=== PATIENT | female | born 1985 | race Caucasian/White ===

== ENCOUNTER 2022-06-27 05:04 | Inpatient (IN) | payer OTHER, SELFPAY ==
[2022-06-27] VITALS (130 sets, daily range): BP systolic 97–169; BP diastolic 56–100; PULSE 69–149; RESP 18–20; TEMP 36.3–36.9; O2SAT 85–100; BMI 32.2
--- NOTE | 2022-06-27 05:05 | HPE_ITS ---
Date of service: 06/27/22 Time of Service: 05:06 Assessment and Plan Assessment and plan (1) Uterine contractions: Status: Acute (2) : Status: Acute (3) Positive GBS test: Status: Acute (4) AMA (advanced maternal age) multigravida 35+: Status: Acute Assessment and plan: 37 yo G1 presents at 39w1d in active labor with SVE 9/100/0, FHT cat I for the most part with some periods of minimal variability but no decelerations. Has had some scant bloody show, will continue to monitor. - PCN dose 1 to be given now, unlikely will be able to receive full prophylaxis before delivery. - She is managing discomfort well, but does request an epidural. - Anticipate OB-HPI Labor/Delivery History of Present Illness Reason for Visit: labor Chief Complaint: Uterine Contractions. EHIDY Calculator Estimated Delivery Date Method Current WG Current Estimate 07/03/22 LMP (Certain) 39w 1d Other Estimates 07/01/22 Ultrasound #1 39w 3d Comments: 37 yo called this morning with c/o contractions since 2:30am. Had been seen in the office on 06/25 with c/o cramping and was 3cm dilated. Had one episode of vaginal bleeding about 1 tbs of blood when she used the bathroom. No loss of fluid. Not sure when she last felt baby move. history notable for: - AMA, cffDNA wnl, female fetus.CF/SMA neg. Level II US at [facility] [place] w[place], anterior placenta. - GBS positive, history of PCN allergy causing rash, allergy testing during negative, cleared for penicillin prophylaxis. - Blood type A pos, antibody neg, RI, HIV/Hep C neg. History of Present Expected Delivery Route/Plan vaginal PFSH All Active Problems (Updated 06/27/22 @ 05:36 by Cyn Longoria) Uterine contractions (Acute) Positive GBS test (Acute) AMA (advanced maternal age) multigravida 35+ (Acute) (Acute) Social History Smoking risk assessment performed?: No History History 1 Para 0 Hx # Term Pregnancies Multiple births Hx # Pregnancies Ectopic pregnancies AB induced Hx Number of Living Children AB spontaneous Exam Physical Exam Vital Signs Reviewed: Yes Constitutional Constitutional: mild distress Detailed Labor and Delivery Exam Dilation: 9 Effacement (%): 100 station: 0 Marquez Score: Cervical Points Exam 0 1 2 3 Dilation Closed 1-2cm 3-4 cm 5-6cm Effacement 0-30% 40-50% 60-70% 80% Consistency Firm Medium Soft Station -3 -2 -1,0 +1,+2 Position Posterior Mid Anterior Amniotic Membrane Status: Intact Contraction Frequency(min): 2 Contraction Duration(sec): 60 Contraction Intensity: Moderate/Strong Fetus A Heart Rate Baseline: 130 Monitor Accelerations: 15 X 15 (with scalp stim) Monitor Decelerations: None Variability: Moderate (6-25 BPM) Presentation: Vertex Categories: Category I Respiratory Exam Respiratory Exam: Normal Psychiatric Exam Psychiatric Exam: Normal Results Results Group Beta Strep: Positive Blood Type: A+ Rubella Status: Immune Varicella Immunity: Not Tested Risk Assessment Risk for Shoulder Dystocia Increased Risk?: No Risk for Post- Hemorrhage At Risk?: No Risks Reviewed Risks Reviewed Upon Admission: Yes
[2022-06-27] MEDS: Penicillin G POT. 5,000,000 UNITS in Normal Saline 100 ML 200 UNITS IVPB (05:50)
[2022-06-27 05:53] LABS: HCT 32.3 % (36.0-46.0); HGB 10.4 g/dL (11.2-15.7); MCH 27.2 pg (27.0-33.0); MCHC 32.2 % (32.0-36.0); MCV 84 fL (80-95); MPV 9.8 fL (8.0-11.0); Platelet Count 301 10^3/uL (130-400); RBC 3.83 10^6/uL (3.93-5.22); RDW 13.4 % (11.7-14.6); RDW-SD 41.2 fL; WBC 15.71 10^3/uL (4.4-10.8)
--- NOTE | 2022-06-27 06:12 | W.ANESPRE ---
General Info Date of Service Date Performed: 06/27/22 Height: 5 ft 7 in Weight: 93.44 kg Body Mass Index (BMI): 32.2 Meds Allergies and Home Medications Current Visit Medications: Current Medications Generic Name Dose Route Start Last Admin Trade Name Freq PRN Reason Stop Dose Admin Sodium Chloride 500 mls @ 0 mls/hr 06/27/22 05:03 Saline 500ml Bag IV PRN PRN As Directed Penicillin G Potassium 3,000, 50 mls @ 100 mls/hr 06/27/22 09:00 000 units/ Sodium Chloride IVPB Q4H PRIMITIVO IV Miscellaneous Supplies 1 each 06/27/22 05:15 Iv Access IV DIRECTED PRIMITIVO IV Miscellaneous Supplies 1 each 06/27/22 05:15 Iv Access IV DIRECTED PRIMITIVO Sodium Chloride 0 ml 06/27/22 05:03 Normal Saline Flush 10 Ml Syr IVP PRN PRN PFSH Active Problems Active Problems: Problem Status Onset Code Uterine contractions O47.9 Positive GBS test B95.1 AMA (advanced maternal age) multigravida 35+ O09.529 Z34.90 Prental History History 1 Para 0 Hx # Term Pregnancies Multiple births Hx # Pregnancies Ectopic pregnancies AB induced Hx Number of Living Children AB spontaneous Vital Signs and Lab Results Vital Signs Most Recent Vital Signs in EMR: Most Recent Vital Signs Temp Pulse Resp BP 36.3 C L 78 18 129/86 06/27/22 05:01 06/27/22 05:20 06/27/22 05:01 06/27/22 05:20 Lab Results Result Diagrams: 06/27/22 05:37 Blood Type / Crossmatch: Patient ABO/Rh Pending 06/27/22 Complete Blood Count: White Blood Count 15.71 10^3/uL (4.4-10.8) H 06/27/22 05:37 Red Blood Count 3.83 10^6/uL (3.93-5.22) L 06/27/22 05:37 Hemoglobin 10.4 g/dL (11.2-15.7) L 06/27/22 05:37 Hematocrit 32.3 % (36.0-46.0) L 06/27/22 05:37 Platelet Count 301 10^3/uL (130-400) 06/27/22 05:37 Complete Metabolic Panel: No Data to Display Liver Function Panel: No Data to Display Coagulation Panel: No Data to Display Cardiac Panel: No Data to Display Arterial Blood Gas: No Data to Display Venous Blood Gas: No Data to Display Pancreas Panel: No Data to Display Thyroid Panel: No Data to Display Infectious Disease: Coronavirus (COVID-19)(PCR) Pending 06/27/22 05:43 Coronavirus 2019 Source Pending 06/27/22 05:43 Blood Cultures: No Data to Display Toxicology Panel: No Data to Display Panel: No Data to Display Anesthesia Assessment and Plan Anesthesia History Personal History: No History of Anesthesia Complications Family History: No Family History of Anesthesia Complications Exercise Tolerance Exercise Tolerance: Metabolic Equivalents>4 Cardiac & Pulmonary Exam Cardiac Exam: Normal S1/S2 Heart Sounds Pulmonary Exam: Clear Bilateral Breath Sounds Implantable Cardiac Device Does patient have a Pacemaker or an ICD?: No Airway Exam Known Difficult Airway: No Mallampati Class: 1 Mouth Opening: Normal (> 3cm) Thyromental Distance: Greater than 3 cm Neck Range of Motion: Full ROM Neck Circumference: Normal Teeth Condition: Normal Dentition ASA Classification ASA Score: ASA 2 Emergency Case?: No NPO Status NPO Status: Full Stomach Status Status: Confirmed Anesthesia Plan Resuscitation Status: Full Code Anesthesia Technique: Spinal Anesthesia Airway Planned: Natural Airway Monitors Used: Standard Monitors
--- NOTE | 2022-06-27 06:43 | W.ANESPRE ---
General Info Height: 5 ft 7 in Weight: 93.44 kg Body Mass Index (BMI): 32.2 Meds Allergies and Home Medications Current Visit Medications: Current Medications Generic Name Dose Route Start Last Admin Trade Name Freq PRN Reason Stop Dose Admin Sodium Chloride 500 mls @ 0 mls/hr 06/27/22 05:03 Saline 500ml Bag IV PRN PRN As Directed Penicillin G Potassium 3,000, 50 mls @ 100 mls/hr 06/27/22 09:00 000 units/ Sodium Chloride IVPB Q4H PRIMITIVO IV Miscellaneous Supplies 1 each 06/27/22 05:15 Iv Access IV DIRECTED PRIMITIVO IV Miscellaneous Supplies 1 each 06/27/22 05:15 Iv Access IV DIRECTED PRIMITIVO Sodium Chloride 0 ml 06/27/22 05:03 Normal Saline Flush 10 Ml Syr IVP PRN PRN PFSH Active Problems Active Problems: Problem Status Onset Code Uterine contractions O47.9 Positive GBS test B95.1 AMA (advanced maternal age) multigravida 35+ O09.529 Z34.90 Prental History History 1 Para 0 Hx # Term Pregnancies Multiple births Hx # Pregnancies Ectopic pregnancies AB induced Hx Number of Living Children AB spontaneous Vital Signs and Lab Results Vital Signs Most Recent Vital Signs in EMR: Most Recent Vital Signs Temp Pulse Resp BP Pulse Ox 36.3 C L 82 20 123/70 98 06/27/22 05:01 06/27/22 06:41 06/27/22 06:28 06/27/22 06:41 06/27/22 06:40 Lab Results Result Diagrams: 06/27/22 05:37 Blood Type / Crossmatch: Patient ABO/Rh A Positive 06/27/22 Antibody Screen NEGATIVE 06/27/22 Complete Blood Count: White Blood Count 15.71 10^3/uL (4.4-10.8) H 06/27/22 05:37 Red Blood Count 3.83 10^6/uL (3.93-5.22) L 06/27/22 05:37 Hemoglobin 10.4 g/dL (11.2-15.7) L 06/27/22 05:37 Hematocrit 32.3 % (36.0-46.0) L 06/27/22 05:37 Platelet Count 301 10^3/uL (130-400) 06/27/22 05:37 Complete Metabolic Panel: No Data to Display Liver Function Panel: No Data to Display Coagulation Panel: No Data to Display Cardiac Panel: No Data to Display Arterial Blood Gas: No Data to Display Venous Blood Gas: No Data to Display Pancreas Panel: No Data to Display Thyroid Panel: No Data to Display Infectious Disease: Coronavirus (COVID-19)(PCR) Pending 06/27/22 05:43 Coronavirus 2019 Source Pending 06/27/22 05:43 Blood Cultures: No Data to Display Toxicology Panel: No Data to Display Panel: No Data to Display Anesthesia Assessment and Plan Anesthesia History Personal History: No History of Anesthesia Complications Family History: No Family History of Anesthesia Complications Exercise Tolerance Exercise Tolerance: Metabolic Equivalents>4 Cardiac & Pulmonary Exam Cardiac Exam: Normal S1/S2 Heart Sounds Pulmonary Exam: Clear Bilateral Breath Sounds Implantable Cardiac Device Does patient have a Pacemaker or an ICD?: No Airway Exam Known Difficult Airway: No Mallampati Class: 1 Mouth Opening: Normal (> 3cm) Thyromental Distance: Greater than 3 cm Neck Range of Motion: Full ROM Neck Circumference: Normal Teeth Condition: Normal Dentition
[2022-06-27] MEDS: Bupivacaine 0.25% Pres-Free 10 ML VIAL (06:45)
[2022-06-27] MEDS: fentaNYL 100 MCG/2 ML VIAL (06:45)
--- NOTE | 2022-06-27 06:47 | W.ANESPROC ---
Intrathecal Analgesia Date Performed: 06/27/22 Procedure Time: 06:48 Requesting Provider: Murray Valenzuela Procedure Location: Obstetrics Reason Performed: Labor Intrathecal Analgesia Standard Monitors Applied: ECG, Blood Pressure and SpO2 Patient Position: Sitting Timeout Performed: Yes Sedation Given (Indicate Dose Given): No Sedation given Patient Mental Status: Awake Sterility: Hand Hygiene, Surgical Cap, Surgical Mask and Sterile Gloves Placement Site: L2-L3 Interspace Spinal Needle Type: Yordy 25 Gauge Needle Length: 3.5 Inch Spinal Procedure: Site Prepped and Sterile Drape Placed Paresthesia: None Spinal Local Anesthetic (Indicate Dose Given): Bupivacaine 0.25% PF (ml) Dose:: 1cc Additives (Indicate Dose Given): Fentanyl PF Dose:: 15mcg and Duramorph PF Dose:: 200mcg Ultrasound: Not Used Number of Attempts (See previous attempts in note section): 2 Procedure Tolerated: No Complications and Patient tolerated well Procedure Outcome: Successful Performed By: Merrill Rodrigues
--- NOTE | 2022-06-27 07:16 | W.PM.OBNL1 ---
Date of service: 06/27/22 Time of Service: 07:16 Pelvic Exam Dilation: 10 Effacement (%): 100 station: +1 Cervix Position: anterior Consistency: soft Vaginal Exam Presentation: Vertex Contractions Monitor Mode: External Contraction Frequency(min): 2 Contraction Duration(sec): 60 Intensity: Moderate/Strong Fetus A Monitor: External (US) Heart Rate Baseline: 145 Presentation: Vertex Variability: Moderate (6-25 BPM) Categories: Category I FHR Rhythm: Regular Characteristics: Normal Accelerations: 15 X 15 Decelerations: None Amniotic Membrane Status: Intact Assessment Note: Intermittent minimal variability but overall category 1 strip. Assessment and Plan Assessment and plan (1) : Status: Acute Assessment and plan: Mima now has an intrathecal in place and feels significant relief. She is complete, baby at +1 station, but not yet feeling the urge to push so will let her labor down and rest. Anticipate delivery soon. Category 1 strip. 1 dose of penicillin in for GBS+ status. Qualifiers: Weeks of gestation: 39 weeks Qualified Code(s): Z3A.39 - 39 weeks gestation of (2) Positive GBS test: Status: Acute Objective Abnormal lab results 06/27/22 Range/Units 05:37 WBC 15.71 H (4.4-10.8) 10^3/uL RBC 3.83 L (3.93-5.22) 10^6/uL Hgb 10.4 L (11.2-15.7) g/dL Hct 32.3 L (36.0-46.0) % Temp Pulse Resp BP Pulse Ox 36.3 C L 79 20 114/77 100 06/27/22 05:01 06/27/22 07:15 06/27/22 06:28 06/27/22 07:14 06/27/22 07:15 Laboratory Results WBC 15.71 10^3/uL (4.4-10.8) H 06/27/22 05:37 RBC 3.83 10^6/uL (3.93-5.22) L 06/27/22 05:37 Hgb 10.4 g/dL (11.2-15.7) L 06/27/22 05:37 Hct 32.3 % (36.0-46.0) L 06/27/22 05:37 MCV 84 fL (80-95) 06/27/22 05:37 MCH 27.2 pg (27.0-33.0) 06/27/22 05:37 MCHC 32.2 % (32.0-36.0) 06/27/22 05:37 RDW 13.4 % (11.7-14.6) 06/27/22 05:37 Plt Count 301 10^3/uL (130-400) 06/27/22 05:37 MPV 9.8 fL (8.0-11.0) 06/27/22 05:37 Patient ABO/Rh A Positive 06/27/22 05:37 Antibody Screen NEGATIVE 06/27/22 05:37 Vital Signs Reviewed: Yes Subjective Patient Reports: No new Complaints Interval history since last seen: Spinal now in place, pain very well controlled. Interventions Pain Management Interventions: Intrathecial. Results Hemoglobin/Hematocrit: Hgb 10.4 g/dL (11.2-15.7) L 06/27/22 05:37 Hct 32.3 % (36.0-46.0) L 06/27/22 05:37 Abnormal Lab Findings: Abnormal Labs 06/27/22 05:37 WBC 15.71 H RBC 3.83 L Hgb 10.4 L Hct 32.3 L
[2022-06-27 07:28] LABS: Source Nasal/Nares
[2022-06-27 08:04] LABS: COVID-19 PCR Negative (Negative)
[2022-06-27] MEDS: Ondansetron 4 MG/2 ML VIAL IVP ×3 (09:45→17:20)
--- NOTE | 2022-06-27 10:09 | W.OBDELIVERY ---
Date of service: 06/27/22 Time of Service: 08:03 OB Labor/ Delivery Information Baby A Delivery Delivery Method: Spontaneaous Presentation: Vertex Cephalic Position: Vertex Vertex Position: Left Occipital Anterior Breech Position: N/A Cord Description-Baby A: 3 Vessels, Nuchal Cord and Reduced Amniotic Fluid: Clear Estimated Blood Loss: 50 Delivery Outcome: Liveborn Infant Complications: none Infant Transferred: Remains with Mother Providers Doctor: Murray Valenzuela Numerical Control Drill Press Operator: Murray Valenzuela Nurse: Sherin Willingham Labor/Delivery Information Number of Babies in Womb: 1 Steroids Given: None Reason Steroids Not Administered: N/A Group Beta Strep: Positive Antibiotics Administered: Yes Number of Doses of Antibiotics: 1 Rubella Status: Immune Blood Type: A+ Varicella Immunity: Not Tested Born En Route: No Maternal Complications: None Shoulder Dystocia: No Stages of Labor Onset of Labor Date: 06/27/22 Onset of Labor Time: 02:30 Complete Dilatation Date: 06/27/22 Complete Dilatation Time: 07:10 Labor - Stage 1 Duration: 4 hours and 40 minutes Infant Delivery Date-Baby A: 06/27/22 Delivery Time-Baby A: 08:03 Labor Stage 2 Duration: 53 minutes Placenta Delivery Date-Baby A: 06/27/22 Placenta Delivery Time-Baby A: 08:07 Labor-Stage 3 Duration: 4 minutes Total Length of Labor-Baby A: 5 hours and 33 minutes Placenta Cultured: No Placenta Status: Delivered Baby A Gender: Female Gestational Status: Term (39-41.6 wks) Gestational Age in Weeks/Days: 39 Weeks and 1 Days Score-1 Minute Interval(Baby A) Heart Rate-1 minute: 100 BPM or Greater Respiratory Effort- 1 minute: Slow Respiration/Weak Cry Muscle Tone-1 minute: Active Movement Reflex Response-1 minute: Prompt Response Color-1 minute: Bluish Hands or Feet Total Score-1 minute: 8 Score-5 Minute Interval(Baby A) Heart Rate- 5 minute: 100 BPM or Greater Respiratory Effort-5 minute: Spontaneous/Strong Cry Muscle Tone-5 minute: Active Movement Reflex Response-5 minute: Prompt Response Color-5 minute: Bluish Hands or Feet Total Score- 5 minute: 9 Note: Mima reached complete after intrathecal was placed. She then labored down for a bit to rest. When baby was at +1 station, she began pushing, and was quite effective. At one point, baby became bradycardic but this resolved with position change. She delivered a viable female in ARIEL position. Loose cord wrapped around left hand, delivered through. After delivery, baby was stimulation, mouth and nose suctioned. Slightly stunned for a moment, but recovered quickly with apgars of 8 and 9. Baby was placed on moms abdomen. Cord was clamped and then cut by dad after pulsations stopped. On examination, she did have a third degree laceration that was repaired with 5 interrupted sutures followed by skin closure in the usual fashion. Hemostasis was achieved. Anticipate routine post care. However, unclear when ROM occured, so will monitor closely for signs of chorio, although unlikely.
[2022-06-27] MEDS: Lactated Ringers 250 ML IV (10:10)
[2022-06-27] MEDS: Hamamelis Leaf/Glycerin 100 EACH BOX PR (17:20)
[2022-06-27] MEDS: Dibucaine 1% 28 GM TUBE TP (17:20)
[2022-06-27] MEDS: Acetaminophen 325 MG TAB 650 MG PO ×2 (17:20→20:58)
[2022-06-27] MEDS: Ibuprofen 600 MG TAB PO (17:20)
[2022-06-28] MEDS: Ibuprofen 600 MG TAB PO ×2 (02:02→13:43)
[2022-06-28] MEDS: Acetaminophen 325 MG TAB 650 MG PO ×3 (05:52→19:11)
--- NOTE | 2022-06-28 07:12 | W.PM.OBPNV1 ---
Date of service: 06/28/22 Time of Service: 07:12 Assessment and Plan Assessment and plan (1) (normal spontaneous vaginal delivery): Status: Acute Assessment and plan: Mitzi is doing well PP day 1 after uncomplicated w 3rd degree lac. She was quite nauseated yesterday but this has resolved. Feeling stable and stronger today. Working on nursing, some difficulty on right breast with flatter nipple, using nipple shield. Pain well controlled, passing flatus, normal lochia, voiding well, eating well. She will stay until tomorrow and continue with nursing support. (2) Positive GBS test: Status: Acute Subjective Subjective Patient comments: No complaints, Pain well controlled, Tolerating diet and Flatus present Joffre baby status: Doing well, Nursing well, Rooming in and Strong Bonding Observed Joffre feeding status: Exclusively breast feeding Exam Physical Exam Vital signs: Temp Pulse Resp BP Pulse Ox 36.9 C 74 18 97/59 L 97 06/27/22 19:42 06/27/22 19:42 06/27/22 19:42 06/27/22 19:42 06/27/22 16:19 Vital Signs Reviewed: Yes Constitutional Constitutional: no acute distress Respiratory Exam Respiratory Exam: Normal Cardiovascular Exam Cardiovascular Exam: Normal Fundal Exam Fundus: Below Umbilicus and Firm Extremities Exam Extremity Exam: Normal and Pulses Intact Neurological Exam Neurological Exam: Normal Psychiatric Exam Psychiatric Exam: Normal Results Hemoglobin/Hematocrit: Hgb 10.4 g/dL (11.2-15.7) L 06/27/22 05:37 Hct 32.3 % (36.0-46.0) L 06/27/22 05:37 Abnormal Lab Findings: Abnormal Labs 06/27/22 05:37 WBC 15.71 H RBC 3.83 L Hgb 10.4 L Hct 32.3 L
[2022-06-28 07:49] VITALS: BP 99/64; PULSE 85; RESP 18; TEMP 36.8; O2SAT 97
--- NOTE | 2022-06-28 07:58 | W.ANESPOSTOP ---
Postoperative Evaluation Date, Time and Location Date Performed: 06/28/22 Time Performed: 07:59 Patient Location: Obstetrics Vital Signs Most Recent Imported Vital Signs: Most Recent Vital Signs Temp Pulse Resp BP Pulse Ox 36.8 C 85 18 99/64 L 97 06/28/22 07:49 06/28/22 07:49 06/28/22 07:49 06/28/22 07:49 06/28/22 07:49 Pain Score Most Recent Pain Score: Most Recent Pain Score Pain Level 0 06/28/22 02:02 Assessment Mental Status: Awake (Alert & Oriented to Patient Baseline) Airway and Respiratory Function: Patent airway with normal (patient baseline) respiratory exam Cardiovascular Function: Hemodynamically Stable Hydration Status: Adequately Hydrated Nausea & Vomiting: No Nausea or Vomiting Pain: Pt. Denies Any Pain Peripheral Nerve Block: Patient did not receive a nerve block Postoperative Comments:: Patient states she was comfortable through deliver from intrathecal, she states the pushing stage was bearable because of the intrathecal. Both and pt are aman appreciative .
[2022-06-28 19:13] VITALS: BP 105/78; PULSE 83; RESP 18; TEMP 36.7
[2022-06-29] MEDS: Acetaminophen 325 MG TAB 650 MG PO (01:23)
[2022-06-29] MEDS: Ibuprofen 600 MG TAB PO (01:24)
[2022-06-29 07:29] VITALS: BP 136/82; PULSE 78; RESP 18; TEMP 36.7; O2SAT 99
--- NOTE | 2022-06-29 11:21 | DSE_ITS ---
Date of service: 06/29/22 Time of Service: DS: Diagnosis Discharge Diagnosis (1) (normal spontaneous vaginal delivery): Status: Acute Asessment and Plan: 37yo [id number] sp with Rh+ GBS+ RI. Uncomplicated labor and delivery. Third degree laceration repaired. She is up and about feeling well, voiding and has had a BM. Lochia normal. Still working on with pumping and urrutia pplementation. Milk not in yet. Normal post course. DC home today. Will see her in clinic in 2 weeks. (2) Positive GBS test: Status: Acute Discharge Plan Disposition Patient Disposition: Home Condition: Good Discharge Details Reason For Visit: Labor Admit Date/Time: 06/27/22 05:04 Admit Provider: Cyn Longoria Attending Provider: Cyn Longoria Discharge Instructions Stand Alone Forms: BC Instructions, BC Post Vaginal Deliver Activity:: Activity as Tolerated Equipment/Supplies:: No Equipment Needed Diet:: As Tolerated Discharge Orders Discharge Orders: Discharge Order (Routine); Ordered 06/29/22 Ordered By: Murray Valenzuela OB:DS Summary Summary Vaginal Delivery Method: Spontaneaous Laceration Description: Perineal Laceration Extension: Third Degree complications OB DS: none Time spent discussing smoking cessation with patient: 3 to 10 minutes Contraception Discussed Contraception Discussed: Yes, Bulger Infant Gender-Baby A: Female weight: 3255 g Disposition of Baby A: Home Status at Discharge Functional status at discharge: independent ambulation Overall status at discharge: patient is progressing back to baseline Mental Status: mental status grossly normal Speech and Movement: speech and movement normal Mood: congruent mood Affect: normal affect Time Spent with Patient providing and/or coordinating discharge services: Greater than 30 minutes Exam Physical Exam Vital signs: Temp Pulse Resp BP Pulse Ox 36.7 C 78 18 136/82 99 06/29/22 07:29 06/29/22 07:29 06/29/22 07:29 06/29/22 07:29 06/29/22 07:29 Vital Signs Reviewed: Yes Constitutional Constitutional: no acute distress Respiratory Exam Respiratory Exam: Normal Cardiovascular Exam Cardiovascular Exam: Normal Fundal Exam Fundus: Below Umbilicus and Firm Extremities Exam Extremity Exam: Normal Back/Spine/Pelvis Exam Back Exam: Normal Skin Exam Skin Exam: Normal Neurological Exam Neurological Exam: Normal Psychiatric Exam Psychiatric Exam: Normal PFSH All Active Problems (Updated 06/28/22 @ 07:14 by Murray Valenzuela) (normal spontaneous vaginal delivery) (Acute) Uterine contractions (Acute) Positive GBS test (Acute) AMA (advanced maternal age) multigravida 35+ (Acute) (Acute) Social History Smoking/Tobacco Use Status: Never Smoking risk assessment performed?: Yes Alcohol Intake: never Drug use: Never Substance use type: does not use Do you feel safe at home: Yes Do you feel safe in your relationship?: Yes History History 1 Para 0 Hx # Term Pregnancies Multiple births Hx # Pregnancies Ectopic pregnancies AB induced Hx Number of Living Children AB spontaneous DS: Data Vitals/I&O Vitals and I&O: Vital Signs Temperature 36.7 C 06/29/22 07:29 Pulse 78 06/29/22 07:29 Pulse Rhythm Regular 06/29/22 07:29 Respiratory Rate 18 06/29/22 07:29 Respiratory Depth Normal 06/28/22 19:13 Blood Pressure 136/82 06/29/22 07:29 Blood Pressure Mean 100 06/29/22 07:29 Pulse Oximetry 99 06/29/22 07:29 Oxygen Delivery Method Room Air 06/27/22 05:01 Oxygen Flow Rate 0 06/27/22 05:01 Pain Level 6 06/29/22 01:23 Comment 06/28/22 19:13 Intake & Output 06/28/22 06/28/22 06/29/22 11:59 23:59 11:59 Output Total 900 / 1800 900 / 1800 Balance -900 / -1800 -900 / -1800 Output: Urine 900 / 1800 900 / 1800
== END 2022-06-29 12:13 | disposition home or self-care (01) | DRG 768 ==
LOC: OBS 05:06 → BCD 11:47 → OBS 11:47
PROVIDERS: Admitting Provider Family Medicine; Visit Provider Family Medicine
DX: O99.824 Streptococcus B carrier state complicating childbirth (principal); Z37.0 Single live birth; O70.20 Third degree perineal laceration during delivery, unspecified; Z3A.39 39 weeks gestation of pregnancy; O69.81X0 Labor and delivery complicated by cord around neck, without compression, not applicable or unspecified
CPT/HCPCS: 85027; 86850; 86900; 86901; 87635; J2405; J2540; J3010